=== PATIENT | male | born 1940 | race Caucasian/White ===

== ENCOUNTER 2021-10-02 14:02 | Emergency (ER) | payer MEDICARE ==
[~2021-10-02] VITALS: Ht 167.6 cm; Wt 74.8 kg
[2021-10-02 16:02] LABS: BASOPHILS % (AUTO) 0.3 % (0.0-2.0); EOSINOPHILS % (AUTO) 0.9 % (0.0-6.0); HEMATOCRIT 30 % (39-51); HEMOGLOBIN 10.3 g/dL (13.5-17.5); LYMPHOCYTES # (AUTO) 0.3 K/uL (0.8-4.8); LYMPHOCYTES % (AUTO) 10.7 % (20.0-44.0); MEAN CORPUSCULAR HGB CONC 34 g/dl (31.0-36.0); MEAN CORPUSCULAR VOLUME 83 fL (80-96); MONOCYTES # (AUTO) 0.6 K/uL (0.1-1.30); MONOCYTES % (AUTO) 20.1 % (2.0-12.0); NEUTROPHILS # (AUTO) 2.2 K/uL (1.8-8.9); PLATELET COUNT (AUTO) 186 K/uL (150-450); RED BLOOD CELL COUNT(AUTO) 3.61 MIL/uL (4.5-6.0); WHITE BLOOD COUNT (AUTO) 3.2 K/uL (4.3-11.0)
[2021-10-02 16:06] LABS: BILIRUBIN,URINE NEGATIVE (NEGATIVE); COLOR,URINE YELLOW (YELLOW); LEUKOCYTE ESTERASE ,URINE NEGATIVE (NEGATIVE); NITRITE, URINE NEGATIVE (NEGATIVE); PH,URINE 5.5 (5.0-8.0); PROTEIN,URINE NEGATIVE (NEGATIVE); UGLUCOSE NEGATIVE (NEGATIVE); UROBILINOGEN,URINE 0.2 EU/dL (0.2)
[2021-10-02 16:19] LABS: CALCIUM, SERUM 8.8 mg/dL (8.5-10.1); CARBON DIOXIDE 23 mmol/L (21-32); CHLORIDE 86 mmol/L (98-107); GLUCOSE 57 mg/dL (74-106); POTASSIUM 3.6 mmol/L (3.5-5.1); SODIUM SERUM 122 mmol/L (136-145); UREA NITROGEN, BLOOD 32 mg/dL (7-18)
[2021-10-02 16:32] LABS: ALANINE AMINOTRANSFERASE 80 U/L (12-78); ALBUMIN 3.6 g/dL (3.4-5.0); ALKALINE PHOSPHATASE 560 U/L (46-116); ASPARTATE AMINOTRANSFERASE 342 U/L (15-37); BILIRUBIN,DIRECT 0.4 mg/dL (0.0-0.2); TOTAL PROTEIN, SERUM 7.2 g/dL (6.4-8.2)
[2021-10-02] MEDS ORDERED: FURO40TA5 PO (16:42)
[2021-10-02] MEDS ORDERED: METF-442 PO (16:42)
[2021-10-02] MEDS ORDERED: OXYB5TAB16 PO (16:42)
[2021-10-02] MEDS ORDERED: OMEP40CA21 PO (16:42)
[2021-10-02 16:51] LABS: BASOPHILS % (MANUAL) 0 % (0.0-2.0); EOSINOPHILS % (MANUAL) 0 % (0-4); LYMPHOCYTES % (MANUAL) 11 % (16-48); MONOCYTES % (MANUAL) 17 % (0-11.0); NEUTROPHILS % (MANUAL) 72 (42-76)
[2021-10-02] MEDS ORDERED: IV NS 0.9% 1,000 ML BAG IV ONE (17:30)
[2021-10-02] MEDS ORDERED: Magnesium 1GM/D5W 100ML PREMIX 100 ML IV ONE (21:52)
[2021-10-02] MEDS: Magnesium 1GM/D5W 100ML PREMIX 100 ML IV SCH ×2 (22:21→23:00)
[2021-10-03] MEDS: Magnesium 1GM/D5W 100ML PREMIX 100 ML IV SCH
[2021-10-03] MEDS ORDERED: Magnesium 1GM/D5W 100ML PREMIX 100 ML IV ONE ×2 (00:09→00:57)
[2021-10-03 09:00] VITALS: BP 120/72
== END 2021-10-03 10:03 | disposition short-term general hospital (02) ==
LOC: ER 14:28
DX: E87.1 Hypo-osmolality and hyponatremia (principal); R53.1 Weakness; E86.0 Dehydration; R94.31 Abnormal electrocardiogram [ECG] [EKG]; R19.09 Other intra-abdominal and pelvic swelling, mass and lump; Z85.46 Personal history of malignant neoplasm of prostate; E11.9 Type 2 diabetes mellitus without complications; Z79.84 Long term (current) use of oral hypoglycemic drugs; Z79.899 Other long term (current) drug therapy; R29.6 Repeated falls
CPT/HCPCS: 99291; 70450; 96365; 96361; 96366 ×2; 87426; 93005; 71045; 74176; 85025; 80048; 80076; 83735; 81003; 36415; 84484; 86850; 82962 ×2; 85007; J7030; J3475 ×3; C9803